=== PATIENT | female | born 2005 | race Two or more races ===

== ENCOUNTER 2025-01-30 19:34 | Emergency (ER) | payer OTHER, MEDICAID, SELFPAY ==
[2025-01-30 19:55] VITALS: BP 122/78; PULSE 105; RESP 18; TEMP 37.2; O2SAT 98
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
[2025-01-30] MEDS: ACETAMINOPHEN 500 MG TABLET 1000 MG PO (20:12)
[2025-01-30 20:28] LABS: HCG Qualitative,Urine Negative
[2025-01-30 21:21] VITALS: BP 114/75; PULSE 75; RESP 16; TEMP 36.9; O2SAT 98
== END 2025-01-30 23:13 | disposition home or self-care (01) ==
PROVIDERS: Nurse Practitioner Family; Emergency Provider Emergency Medicine
DX: R07.89 Other chest pain (principal); M54.50 Low back pain, unspecified; V86.59XA Driver of other special all-terrain or other off-road motor vehicle injured in nontraffic accident, initial encounter; Y93.I9 Activity, other involving external motion
CPT/HCPCS: 71101; 72100; 81025; 99283; A9270

== ENCOUNTER 2025-02-24 15:24 | Emergency (ER) | payer OTHER, MEDICAID, SELFPAY ==
[2025-02-24 15:25] VITALS: BMI 21.3
[2025-02-24 15:37] VITALS: BP 134/66; PULSE 82; RESP 18; TEMP 36.8; O2SAT 95
--- NOTE | 2025-02-24 15:45 | XR_ITS ---
Examination: Pelvic ultrasound, transabdominal, complete Technique: Transabdominal ultrasound of the pelvis performed using grayscale imaging Date and time of exam: February 24, 2025, 1549 hours INDICATIONS: Onset pelvic pain beginning 2 days ago. FINDINGS: Uterus 6.0 cm endometrial stripe 0.9 cm No uterine mass or intrauterine gestation Mild to moderate free fluid in the cul-de-sac Right ovary 3.5 cm arterial flow surrounding adnexal free fluid Left ovary 4.5 cm arterial flow surrounding free fluid in the adnexal region IMPRESSION: No uterine or adnexal mass Significant free fluid in the cul-de-sac and surrounding the ovaries, differential would include pelvic inflammatory disease, clinical correlation advised
--- NOTE | 2025-02-24 15:45 | PD.EDRME ---
Rapid Medical Screening Exam E Arrival date/time: 02/24/25 15:24 19-year-old female presents to the Emergency Department for complaints of pelvic pain mostly left-sided The patient reports she was recently treated for BV Chief Complaint: Abdominal Pain Time Seen by Provider: 02/24/25 15:39 Vital signs: Vital Signs Temperature 98.2 F 02/24/25 15:37 Pulse Rate 82 02/24/25 15:37 Respiratory Rate 18 02/24/25 15:37 Blood Pressure 134/66 H 02/24/25 15:37 Pulse Oximetry (%) 95 02/24/25 15:37 Oxygen Delivery Method Room Air 02/24/25 15:37 Vital signs reviewed by provider: Yes Exam: On exam patient has tenderness left pelvic region Differentials include but not limited to PID, UTI, cystitis, vaginitis, gonorrhea, chlamydia Clinical Impression: Lab work and imaging obtained
[2025-02-24 16:30] LABS: Collection Type, Urine Clean Catch
[2025-02-24 16:41] LABS: HCG Qualitative,Urine Negative
[2025-02-24 16:45] LABS: Bacteria,Urine Rare; Bilirubin,Urine Negative (Negative); Blood,Urine Negative (Negative); Clarity,Urine Clear (Clear/Hazy); Color,Urine Yellow (Lt Yel-Yel); Culture Indicated,Urine Not Indicated; Glucose, Urine Negative (Negative); Ketones,Urine 1+ (Negative); Leukocyte Esterase,Urine Negative (Negative); Nitrite,Urine Negative (Negative); PH,Urine 6.5 (5.0-7.0); Protein,Urine Negative (Neg - Trace); RBC,Urine 7 /hpf (0-3); Specific Gravity,Urine 1.022 (1.001-1.035); Squamous Epithelial Cell,Urine 5 /hpf (0-5); Urobilinogen,Urine Negative mg/dL (0.0-1.0); WBC,Urine 1 /hpf (0-5)
[2025-02-24 16:49] LABS: Basophils # (Auto) 0.0 Thou/mm3 (0.0-0.2); Basophils % (Auto) 0 % (0-2.5); Eosinophils # (Auto) 0.1 Thou/mm3 (0.0-0.5); Eosinophils % (Auto) 1 % (0-10); Hematocrit 43.7 % (36.0-46.0); Hemoglobin 14.7 g/dL (12.0-16.0); Immature Granulocytes Auto 0.03 Thou/mm3 (0.00-0.00); Lymphocytes # (Auto) 1.6 Thou/mm3 (1.0-4.8); Lymphocytes % (Auto) 20 % (10-50); Mean Corpuscular HGB Conc 33.6 g/dl (31.0-37.0); Mean Corpuscular Hemoglobin 30.4 pg (25.0-35.0); Mean Corpuscular Volume 91 fL (80-100); Monocytes # (Auto) 0.4 Thou/mm3 (0.0-0.8); Monocytes % (Auto) 5 % (0-12); Neutrophils # (Auto) 6.1 Thou/mm3 (1.8-7.7); Neutrophils % (Auto) 74 % (37-80); Nucleated Red Blood Cell # 0.00 Thou/mm3 (0.00-0.00); Nucleated Red Blood Cell % 0 /100 WBC (0); Platelet Count 292 Thou/mm3 (140-440); RDW Standard Deviation 42.4 fL (36.4-46.3); Red Blood Count 4.83 Miln/mm3 (4.00-5.20); White Blood Count 8.3 Thou/mm3 (3.6-11.0)
[2025-02-24 17:05] LABS: Alanine Aminotransferase 33 U/L (10-49); Albumin, Serum 4.7 gm/dL (3.5-5.0); Albumin/Globulin Ratio 2.4 (1.2-2.2); Alkaline Phosphatase 75 U/L (46-116); Anion Gap 8 (7-16); Aspartate Amino Transferase 26 U/L (0-34); BUN/Creatinine Ratio 10 Ratio (12-20); Bilirubin,Total 1.1 mg/dL (0.3-1.2); Blood Urea Nitrogen 7 mg/dL (9-23); Calcium 9.1 mg/dL (8.3-10.6); Calcium (Corrected) 9.1 mg/dL (8.5-10.1); Carbon Dioxide 26.5 mMol/L (20.0-31.0); Chloride 108 mMol/L (98-107); Creatinine (Component) 0.7 mg/dL (0.6-1.3); Estimated Creatinine Clearance 95.9 mL/min (>60); Globulin 2.0 gm/dL (2.3-3.5); Glucose 86 mg/dL (74-106); Lipase 26 U/L (12-53); Osmolality,Calculated 280 (275-295); Potassium 4.0 mMol/L (3.4-5.1); Sodium 142 mMol/L (136-145); Total Protein 6.7 gm/dL (5.7-8.2); eGFR > 60 See Note
[2025-02-24 22:03] VITALS: BP 119/75; PULSE 90; RESP 17; TEMP 37.2; O2SAT 98
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
[2025-02-24] MEDS: cefTRIAXone 500 MG, LIDOCAINE 1% 20 ML 1 ML IM (23:04)
== END 2025-02-24 23:21 | disposition home or self-care (01) ==
PROVIDERS: Nurse Practitioner Primary Care; Emergency Provider Emergency Medicine
DX: N73.9 Female pelvic inflammatory disease, unspecified (principal); R18.8 Other ascites
CPT/HCPCS: 36415; 76856; 80053; 81001; 81025; 83690; 85025; 96372; 99285; J0696; J3490